=== PATIENT | male | born 1930 | race Caucasian/White ===

== ENCOUNTER 2017-01-30 18:33 | Emergency (ER) | payer MEDICARE, BC ==
[~2017-01-30 18:33] MED LIST: ACYCLOVIR200 MG PO; AMOXIL875 MG PO; ASPIRIN81 MG PO; AUGMENTIN 875-11 TAB; AUGMENTIN 875-11 TAB PO; EYE DROPS; FLOMAX0.4 MG; FLOMAX0.4 MG PO; HYZAAR 100-25 T1 TAB PO; IBUPROFEN200 MG; K-DUR20 ME1 PO; LABETALOL HCL200 MG; LABETALOL HCL200 MG PO; LEVAQUIN500 MG; LEVAQUIN500 MG PO; LORTAB 5/500 TA1 TAB PO; MULTIVITAMIN1 TAB PO; NEXIUM40 MG; PLENDIL10 MG; PLENDIL5 MG PO; PRED FORTE5 ML OP; TOPROL XL100 MG; TYLENOL500 MG; TYLENOL500 MG PO; XANAX0.25 MG PO
[2017-01-30 22:42] LABS: BASO % 0.4 % (0-2); IMMATURE GRANULOCYTES ABSOLUTE 0.01 tho/cmm (0-0.03); IMMATURE GRANULOCYTES PERCENT 0.2 % (0-0.3); LYMPH % 11.4 % (20-45); LYMPH ABSOLUTE COUNT 0.6 tho/cmm (0.8-4.5); MCH (MEAN CORPUSCULAR HGB) 33.6 pg (28.0-32.0); MCHC MEAN CORPUSCULAR HGB CONC 34.3 % (32.0-36.0); MEAN PLATELET VOLUME 11.1 cmc (9.4-12.4); MONO % 21.2 % (0-12); NEUTROPHIL ABSOLUTE COUNT 3.2 tho/cmm (1.6-8.0); NEUTROPHIL-AUTOMATED 3.2 tho/cmm (1.6-8.0); NEUTROPHILS % 66.8 % (40-80); PLATELET COUNT 191 tho/cmm (150-450); RED BLOOD COUNT 3.57 mil/cmm (4.40-5.70); RED CELL DISTRIBUTION WIDTH 12.4 % (12.4-16.4); WHITE BLOOD COUNT 4.8 tho/cmm (4.0-10.0)
[2017-01-30 22:55] LABS: ANION GAP 12 mmol/L (0-20); BLOOD UREA NITROGEN 29 mg/dl (6-24); CARBON DIOXIDE-VENOUS 30 mmol/L (22-32); CHLORIDE 98 mmol/l (96-110); CREATININE 1.45 mg/dl (0.60-1.30); GLUCOSE 113 mg/dL (70-110); POTASSIUM 3.4 mmol/L (3.7-5.1); SODIUM 137 mmol/L (135-145); eGFR VALUE FOR BLACK 50 mL/Min
[2017-01-30 23:18] LABS: URINE APPEARANCE CLEAR; URINE BILIRUBIN NEGATIVE (NEG); URINE BLOOD SMALL (NEG); URINE COLOR YELLOW; URINE GLUCOSE (UA) NEGATIVE (NEG); URINE KETONE SMALL (NEG); URINE LEUKOCYTE ESTERASE POSITIVE (NEG); URINE NITRITE NEGATIVE (NEG); URINE PROTEIN MODERATE (NEG); URINE SPECIFIC GRAVITY 1.015 (1.003-1.030)
[2017-01-30 23:24] LABS: URINE MUCUS 1+
== END 2017-01-31 00:04 ==
LOC: EDMED 18:33
PROVIDERS: Emergency Medicine
DX: J10.1 Influenza due to other identified influenza virus with other respiratory manifestations (principal); I10 Essential (primary) hypertension; Z87.891 Personal history of nicotine dependence; Z79.82 Long term (current) use of aspirin; Z79.899 Other long term (current) drug therapy
CPT/HCPCS: J7030

== ENCOUNTER 2017-02-04 10:52 | Emergency (ER) | payer MEDICARE, BC ==
[2017-02-04] MEDS ORDERED: ZOVIRAX200 M1 PO (11:03)
[2017-02-04] MEDS ORDERED: HYZAAR 100-251 EACH PO (11:04)
[2017-02-04] MEDS ORDERED: FELODIPINE ER10 M2 PO (11:04)
[2017-02-04] MEDS ORDERED: LABETALOL HCL200 M1 PO (11:04)
[2017-02-04] MEDS ORDERED: ASPIRIN EC81 MG PO (11:05)
[2017-02-04] MEDS ORDERED: CATAPRES0.1 M1 PO (11:05)
[2017-02-04 11:46] LABS: BASO % 0.3 % (0-2); EOS % 0.6 % (0-7); HGB-HEMOGLOBIN 12.6 gm/dl (13.5-17.0); IMMATURE GRANULOCYTES ABSOLUTE 0.01 tho/cmm (0-0.03); IMMATURE GRANULOCYTES PERCENT 0.3 % (0-0.3); LYMPH % 18.7 % (20-45); LYMPH ABSOLUTE COUNT 0.7 tho/cmm (0.8-4.5); MCH (MEAN CORPUSCULAR HGB) 33.5 pg (28.0-32.0); MCV (MEAN CELL VOLUME) 95.7 fl (82.0-96.0); MEAN PLATELET VOLUME 10.9 cmc (9.4-12.4); MONO % 19.3 % (0-12); MONOCYTE ABSOLUTE COUNT 0.7 tho/cmm (0.0-1.2); NEUTROPHIL ABSOLUTE COUNT 2.1 tho/cmm (1.6-8.0); NEUTROPHIL-AUTOMATED 2.1 tho/cmm (1.6-8.0); NEUTROPHILS % 60.8 % (40-80); PLATELET COUNT 177 tho/cmm (150-450); RED BLOOD COUNT 3.76 mil/cmm (4.40-5.70); RED CELL DISTRIBUTION WIDTH 12.1 % (12.4-16.4); WHITE BLOOD COUNT 3.5 tho/cmm (4.0-10.0)
[2017-02-04 12:07] LABS: URINE BILIRUBIN NEGATIVE (NEG); URINE BLOOD SMALL (NEG); URINE GLUCOSE (UA) NEGATIVE (NEG); URINE KETONE NEGATIVE (NEG); URINE LEUKOCYTE ESTERASE POSITIVE (NEG); URINE NITRITE NEGATIVE (NEG); URINE PROTEIN MODERATE (NEG)
[2017-02-04 12:10] LABS: URINE APPEARANCE CLEAR; URINE COLOR YELLOW
[2017-02-04 12:21] LABS: URINE EPITHELIAL CELLS 15-18 /[HPF] (0-10); URINE RBC RARE /[HPF] (0-5)
[2017-02-04 12:22] LABS: ALB/GLOB RATIO 1.1 (0.8-2.0); ALBUMIN 3.8 g/dl (3.5-5.0); ALKALINE PHOSPHATASE 88 U/L (33-138); ALT/SGPT 24 U/L (12-78); ANION GAP 12 mmol/L (0-20); AST/SGOT 35 U/L (10-40); BILIRUBIN,TOTAL 0.3 mg/dl (0.0-1.5); BLOOD UREA NITROGEN 26 mg/dl (6-24); CALCIUM 8.9 mg/dl (8.5-10.5); CARBON DIOXIDE-VENOUS 31 mmol/L (22-32); CHLORIDE 95 mmol/l (96-110); CREATININE 1.48 mg/dl (0.60-1.30); GLUCOSE 105 mg/dL (70-110); POTASSIUM 3.6 mmol/L (3.7-5.1); SODIUM 134 mmol/L (135-145); eGFR VALUE FOR BLACK 49 mL/Min
[2017-02-04 12:24] LABS: PROCALCITONIN 0.13 ng/ml (0.05-0.09)
[2017-02-04] MEDS ORDERED: PROMETHAZINE-C118 ML PO (14:50)
== END 2017-02-04 15:21 ==
LOC: EDMED 10:52
PROVIDERS: Emergency Medicine
DX: J10.1 Influenza due to other identified influenza virus with other respiratory manifestations (principal); E86.0 Dehydration; I10 Essential (primary) hypertension
CPT/HCPCS: A9540; A9558; J7030

== ENCOUNTER 2017-02-10 09:35 | Inpatient (IN) | payer MEDICARE, BC ==
[~2017-02-10 09:35] MED LIST changes: +ASPIRIN EC81 MG PO; +CATAPRES0.1 M1 PO; +FELODIPINE ER10 M2 PO; +HYZAAR 100-251 EACH PO; +LABETALOL HCL200 M1 PO; +PROMETHAZINE-C118 ML PO; +ZOVIRAX200 M1 PO
[2017-02-10] MEDS ORDERED: TYLENOL ARTHRI650 M1 PO (10:21)
[2017-02-10] MEDS ORDERED: HYDROCODON-ACE1 EA16 PO (10:22)
[2017-02-10 10:51] LABS: BASO % 0.1 % (0-2); EOS % 0.4 % (0-7); HCT-HEMATOCRIT 37.9 % (36.0-53.5); HGB-HEMOGLOBIN 13.3 gm/dl (13.5-17.0); IMMATURE GRANULOCYTES ABSOLUTE 0.03 tho/cmm (0-0.03); IMMATURE GRANULOCYTES PERCENT 0.3 % (0-0.3); LYMPH % 8.6 % (20-45); LYMPH ABSOLUTE COUNT 0.8 tho/cmm (0.8-4.5); MCH (MEAN CORPUSCULAR HGB) 33.1 pg (28.0-32.0); MCHC MEAN CORPUSCULAR HGB CONC 35.1 % (32.0-36.0); MCV (MEAN CELL VOLUME) 94.3 fl (82.0-96.0); MEAN PLATELET VOLUME 11.3 cmc (9.4-12.4); MONO % 13.5 % (0-12); MONOCYTE ABSOLUTE COUNT 1.2 tho/cmm (0.0-1.2); NEUTROPHIL ABSOLUTE COUNT 6.9 tho/cmm (1.6-8.0); NEUTROPHIL-AUTOMATED 6.9 tho/cmm (1.6-8.0); NEUTROPHILS % 77.1 % (40-80); PLATELET COUNT 250 tho/cmm (150-450); RED BLOOD COUNT 4.02 mil/cmm (4.40-5.70); RED CELL DISTRIBUTION WIDTH 11.8 % (12.4-16.4)
[2017-02-10 11:05] LABS: ALBUMIN 3.8 g/dl (3.5-5.0); ALKALINE PHOSPHATASE 99 U/L (33-138); ALT/SGPT 19 U/L (12-78); ANION GAP 11 mmol/L (0-20); AST/SGOT 24 U/L (10-40); BLOOD UREA NITROGEN 30 mg/dl (6-24); CALCIUM 9.1 mg/dl (8.5-10.5); CARBON DIOXIDE-VENOUS 29 mmol/L (22-32); CHLORIDE 98 mmol/l (96-110); CREATININE 1.51 mg/dl (0.60-1.30); GLUCOSE 127 mg/dL (70-110); POTASSIUM 3.6 mmol/L (3.7-5.1); SODIUM 134 mmol/L (135-145); eGFR VALUE FOR BLACK 48 mL/Min
[2017-02-10 11:34] LABS: PROCALCITONIN <0.05 ng/ml (0.05-0.09)
[2017-02-10 12:13] LABS: URINE BILIRUBIN NEGATIVE (NEG); URINE BLOOD NEGATIVE (NEG); URINE GLUCOSE (UA) NEGATIVE (NEG); URINE KETONE NEGATIVE (NEG); URINE LEUKOCYTE ESTERASE POSITIVE (NEG); URINE NITRITE NEGATIVE (NEG); URINE PROTEIN SMALL (NEG)
[2017-02-10 12:33] LABS: URINE APPEARANCE CLEAR; URINE COLOR DARK YELLOW
[2017-02-10 12:34] LABS: URINE RBC 0 /[HPF] (0-5)
[2017-02-13 05:42] LABS: BASO % 0.1 % (0-2); EOS % 1.5 % (0-7); EOSINOPHIL ABSOLUTE COUNT 0.1 tho/cmm (0.0-0.7); HCT-HEMATOCRIT 32.4 % (36.0-53.5); HGB-HEMOGLOBIN 11.4 gm/dl (13.5-17.0); IMMATURE GRANULOCYTES ABSOLUTE 0.02 tho/cmm (0-0.03); IMMATURE GRANULOCYTES PERCENT 0.3 % (0-0.3); LYMPH % 15.9 % (20-45); LYMPH ABSOLUTE COUNT 1.1 tho/cmm (0.8-4.5); MCH (MEAN CORPUSCULAR HGB) 33.1 pg (28.0-32.0); MCHC MEAN CORPUSCULAR HGB CONC 35.2 % (32.0-36.0); MCV (MEAN CELL VOLUME) 94.2 fl (82.0-96.0); MONO % 15.6 % (0-12); MONOCYTE ABSOLUTE COUNT 1.1 tho/cmm (0.0-1.2); NEUTROPHIL ABSOLUTE COUNT 4.7 tho/cmm (1.6-8.0); NEUTROPHIL-AUTOMATED 4.7 tho/cmm (1.6-8.0); NEUTROPHILS % 66.6 % (40-80); PLATELET COUNT 280 tho/cmm (150-450); RED BLOOD COUNT 3.44 mil/cmm (4.40-5.70); WHITE BLOOD COUNT 7.1 tho/cmm (4.0-10.0)
[2017-02-13 05:50] LABS: ANION GAP 9 mmol/L (0-20); BLOOD UREA NITROGEN 31 mg/dl (6-24); CALCIUM 8.8 mg/dl (8.5-10.5); CARBON DIOXIDE-VENOUS 32 mmol/L (22-32); CHLORIDE 94 mmol/l (96-110); CREATININE 1.31 mg/dl (0.60-1.30); GLUCOSE 100 mg/dL (70-110); MAGNESIUM 2.1 mg/dl (1.3-2.6); POTASSIUM 3.3 mmol/L (3.7-5.1); SODIUM 132 mmol/L (135-145); eGFR VALUE FOR BLACK 57 mL/Min
[2017-02-13 12:01] LABS: URINE BILIRUBIN NEGATIVE (NEG); URINE BLOOD NEGATIVE (NEG); URINE GLUCOSE (UA) NEGATIVE (NEG); URINE KETONE NEGATIVE (NEG); URINE LEUKOCYTE ESTERASE NEGATIVE (NEG); URINE NITRITE NEGATIVE (NEG); URINE PH 6.5 (5.0-8.0); URINE PROTEIN NEGATIVE (NEG); URINE SPECIFIC GRAVITY 1.015 (1.003-1.030)
[2017-02-13 12:51] LABS: URINE APPEARANCE CLEAR; URINE COLOR YELLOW
[2017-02-14 06:07] LABS: ANION GAP 11 mmol/L (0-20); BLOOD UREA NITROGEN 22 mg/dl (6-24); CALCIUM 8.7 mg/dl (8.5-10.5); CARBON DIOXIDE-VENOUS 31 mmol/L (22-32); CHLORIDE 96 mmol/l (96-110); CREATININE 1.05 mg/dl (0.60-1.30); GLUCOSE 97 mg/dL (70-110); POTASSIUM 3.5 mmol/L (3.7-5.1); SODIUM 134 mmol/L (135-145); eGFR VALUE FOR BLACK 74 mL/Min
[2017-02-14] MEDS ORDERED: TYLENOL EXTRA500 M1 PO (12:37)
[2017-02-14] MEDS ORDERED: COLACE100 M1 PO (12:38)
[2017-02-14] MEDS ORDERED: MUCINEX600 M1 PO (12:38)
[2017-02-14] MEDS ORDERED: LIDODERM1 EACH TOP (12:40)
[2017-02-14] MEDS ORDERED: NUCYNTA ER50 M1 PO (12:41)
[2017-02-14] MEDS ORDERED: CYCLOBENZAPRINE5 M1 PO (12:42)
== END 2017-02-14 13:20 | disposition home health service (06) | DRG 552 ==
LOC: EDMED 09:35 → EMR2 14:26 → CAR1 15:30
PROVIDERS: Emergency Medicine; Nurse Practitioner; ADMIT Internal Medicine
DX: M54.6 Pain in thoracic spine (principal); E86.0 Dehydration; I12.9 Hypertensive chronic kidney disease with stage 1 through stage 4 chronic kidney disease, or unspecified chronic kidney disease; N18.9 Chronic kidney disease, unspecified; R53.1 Weakness; F41.9 Anxiety disorder, unspecified; R09.02 Hypoxemia; E87.6 Hypokalemia; R35.0 Frequency of micturition; Z86.718 Personal history of other venous thrombosis and embolism; Z88.1 Allergy status to other antibiotic agents; Z79.82 Long term (current) use of aspirin; Z79.899 Other long term (current) drug therapy
CPT/HCPCS: G0378; G8979-GP-CJ; G8987-GO-CK; G8988-GO-CJ; G8989-GO-CK; J1650; J2270; J2405; J3360; J7030

== ENCOUNTER 2017-04-15 07:10 | Emergency (ER) | payer MEDICARE, BC ==
[~2017-04-15 07:10] MED LIST changes: +COLACE100 M1 PO; +CYCLOBENZAPRINE5 M1 PO; +HYDROCODON-ACE1 EA16 PO; +LIDODERM1 EACH TOP; +MUCINEX600 M1 PO; +NUCYNTA ER50 M1 PO; +TYLENOL ARTHRI650 M1 PO; +TYLENOL EXTRA500 M1 PO
[2017-04-15] MEDS ORDERED: MULTIVITAMINS1 EAC6 PO (07:34)
[2017-04-15] MEDS ORDERED: CEPHALEXIN500 M1 PO (09:56)
[2017-04-15 10:43] LABS: BASO % 0.3 % (0-2); EOS % 0.3 % (0-7); HCT-HEMATOCRIT 32.9 % (36.0-53.5); HGB-HEMOGLOBIN 11.2 gm/dl (13.5-17.0); IMMATURE GRANULOCYTES ABSOLUTE 0.01 tho/cmm (0-0.03); IMMATURE GRANULOCYTES PERCENT 0.1 % (0-0.3); LYMPH % 12.9 % (20-45); LYMPH ABSOLUTE COUNT 0.9 tho/cmm (0.8-4.5); MCV (MEAN CELL VOLUME) 97.1 fl (82.0-96.0); MEAN PLATELET VOLUME 10.8 cmc (9.4-12.4); MONO % 9.6 % (0-12); MONOCYTE ABSOLUTE COUNT 0.7 tho/cmm (0.0-1.2); NEUTROPHIL ABSOLUTE COUNT 5.6 tho/cmm (1.6-8.0); NEUTROPHIL-AUTOMATED 5.6 tho/cmm (1.6-8.0); NEUTROPHILS % 76.8 % (40-80); PLATELET COUNT 205 tho/cmm (150-450); RED BLOOD COUNT 3.39 mil/cmm (4.40-5.70); RED CELL DISTRIBUTION WIDTH 12.7 % (12.4-16.4); WHITE BLOOD COUNT 7.2 tho/cmm (4.0-10.0)
== END 2017-04-15 11:56 ==
LOC: EDMED 07:10
PROVIDERS: Emergency Medicine
PROC: 2Y41X5Z Packing of Nasal Region using Packing Material (ICD-10-PCS; principal; 2017-04-15)
DX: R04.0 Epistaxis (principal); R55 Syncope and collapse; I12.9 Hypertensive chronic kidney disease with stage 1 through stage 4 chronic kidney disease, or unspecified chronic kidney disease; N18.9 Chronic kidney disease, unspecified
CPT/HCPCS: J7030